=== PATIENT | female | born 1950 | race Caucasian/White ===

== ENCOUNTER 2020-11-13 12:56 | Outpatient (CLI) | payer MEDICARE, OTHER, SELFPAY ==
--- NOTE | 2020-11-13 | XR_ITS ---
WS: [id number] SCREENING DEXA SCAN Huan Xiong CLINICAL INFORMATION: POSTMENOPAULAS COMPARISON: None. FINDINGS: The L1-L4 bone mineral density measures 0.832 g/cm2. This corresponds to a T score score of -2.9 and Z score of -1.2. Left femoral neck bone mineral density measures 0.760 g/cm2. This corresponds to a T score of -2.0 an d Z score of -0.6. Right femoral neck bone mineral density measures 0.835 g/cm2. This corresponds to a T score -1.4of an d Z score of 0.0. Mean femoral neck bone mineral density measures 0.797 g/cm2. This corresponds to a T score of -1.7 an d Z score of -0.3. XR/XR DEXA axial skeleton* [id number] IMPRESSION: Osteoporosis lumbar spine. Osteopenia of the femoral necks. Patient's FRAX calculated 10 year probability for major osteoporotic fracture i s 17.2 % and osteoporotic hip fracture is 3.0%.
== END 2020-11-13 12:57 | disposition home or self-care (01) ==
PROVIDERS: PCP Internal Medicine; Visit Provider Internal Medicine
DX: Z78.0 Asymptomatic menopausal state (principal); M81.0 Age-related osteoporosis without current pathological fracture
CPT/HCPCS: 77080

== ENCOUNTER → 2020-12-08 10:37 | Outpatient (BNVA) | payer MEDICARE, OTHER, SELFPAY | PROVIDERS: PCP Internal Medicine; Referring Provider Internal Medicine; Visit Provider Podiatrist Foot & Ankle Surgery | DX: S92.351A Displaced fracture of fifth metatarsal bone, right foot, initial encounter for closed fracture (principal); X58.XXXA Exposure to other specified factors, initial encounter; Z46.89 Encounter for fitting and adjustment of other specified devices; S92.354D Nondisplaced fracture of fifth metatarsal bone, right foot, subsequent encounter for fracture with routine healing; X58.XXXD Exposure to other specified factors, subsequent encounter | CPT/HCPCS: 77077; 97760; L4361 ==

== ENCOUNTER 2020-12-08 12:13 | Outpatient (CLI) | payer MEDICARE, OTHER, SELFPAY | END 2020-12-08 12:14 | disposition home or self-care (01) | LOC: SPT 12:14 | PROVIDERS: PCP Internal Medicine; Visit Provider Podiatrist Foot & Ankle Surgery | DX: Z46.89 Encounter for fitting and adjustment of other specified devices (principal); S92.354D Nondisplaced fracture of fifth metatarsal bone, right foot, subsequent encounter for fracture with routine healing; X58.XXXD Exposure to other specified factors, subsequent encounter | CPT/HCPCS: 97760; L4361 ==

== ENCOUNTER → 2020-12-25 11:00 | Outpatient (BNVA) | payer MEDICARE, OTHER, SELFPAY | PROVIDERS: PCP Internal Medicine; Visit Provider Podiatrist Foot & Ankle Surgery | DX: S92.354D Nondisplaced fracture of fifth metatarsal bone, right foot, subsequent encounter for fracture with routine healing (principal); L60.0 Ingrowing nail; L60.3 Nail dystrophy; X58.XXXD Exposure to other specified factors, subsequent encounter; M79.671 Pain in right foot | CPT/HCPCS: 73630 ==

== ENCOUNTER → 2021-01-08 10:11 | Outpatient (BNVA) | payer MEDICARE, OTHER, SELFPAY | PROVIDERS: PCP Internal Medicine; Visit Provider Podiatrist Foot & Ankle Surgery | DX: S92.354A Nondisplaced fracture of fifth metatarsal bone, right foot, initial encounter for closed fracture (principal); M79.673 Pain in unspecified foot | CPT/HCPCS: 73630 ==

== ENCOUNTER → 2021-01-28 10:47 | Outpatient (BNVA) | payer MEDICARE, OTHER, SELFPAY | PROVIDERS: PCP Internal Medicine; Visit Provider Podiatrist Foot & Ankle Surgery | DX: S92.354A Nondisplaced fracture of fifth metatarsal bone, right foot, initial encounter for closed fracture (principal); L60.3 Nail dystrophy; L60.0 Ingrowing nail; X58.XXXA Exposure to other specified factors, initial encounter | CPT/HCPCS: 73630 ==

== ENCOUNTER → 2021-02-18 11:28 | Outpatient (BNVA) | payer MEDICARE, OTHER, SELFPAY | PROVIDERS: PCP Internal Medicine; Visit Provider Podiatrist Foot & Ankle Surgery | DX: S92.345A Nondisplaced fracture of fourth metatarsal bone, left foot, initial encounter for closed fracture (principal) | CPT/HCPCS: 73630 ==

== ENCOUNTER → 2021-03-25 11:45 | Outpatient (BNVA) | payer MEDICARE, OTHER, SELFPAY | PROVIDERS: PCP Internal Medicine; Visit Provider Podiatrist Foot & Ankle Surgery | DX: M79.673 Pain in unspecified foot (principal); S92.354A Nondisplaced fracture of fifth metatarsal bone, right foot, initial encounter for closed fracture; L60.3 Nail dystrophy; L60.0 Ingrowing nail; X58.XXXA Exposure to other specified factors, initial encounter | CPT/HCPCS: 73630 ==

== ENCOUNTER → 2021-06-10 10:53 | Day surgery (SDC) | payer MEDICARE, OTHER, SELFPAY ==
[2021-06-10 11:25] VITALS: BP 128/78; PULSE 70; RESP 18; TEMP 37; O2SAT 98; BMI 22.1
[2021-06-10] MEDS: denosumab 60 mg SDV SUBCUT (11:52)
== END ==
PROVIDERS: PCP Internal Medicine; Visit Provider Internal Medicine
DX: M81.0 Age-related osteoporosis without current pathological fracture (principal)
CPT/HCPCS: 96372; J0897

== ENCOUNTER → 2021-08-05 08:38 | Outpatient (BNVA) | payer MEDICARE, OTHER, SELFPAY | PROVIDERS: PCP Internal Medicine; Visit Provider Internal Medicine | DX: M81.0 Age-related osteoporosis without current pathological fracture (principal); Z87.81 Personal history of (healed) traumatic fracture; M79.7 Fibromyalgia | CPT/HCPCS: 99214 ==

== ENCOUNTER → 2021-12-07 09:00 | Day surgery (SDC) | payer MEDICARE, OTHER, SELFPAY ==
[2021-12-07 09:24] VITALS: BP 153/82; PULSE 71; RESP 18; TEMP 36.1; O2SAT 99
[2021-12-07 10:40] LABS: Calcium 9.4 mg/dL (8.5-10.5)
--- NOTE | 2021-12-07 10:40 | PC.NURSE ---
Pt to GI lab for Prolia injection. Calcium level today 9.5. Prolia injection given as ordered.
[2021-12-07] MEDS: denosumab 60 mg SDV SUBCUT (10:41)
== END ==
PROVIDERS: PCP Internal Medicine; Visit Provider Internal Medicine
DX: M81.0 Age-related osteoporosis without current pathological fracture (principal)
CPT/HCPCS: 36415; 82310; 96372; J0897

== ENCOUNTER → 2022-01-13 09:32 | Outpatient (BNVA) | payer MEDICARE, OTHER, SELFPAY | PROVIDERS: PCP Internal Medicine; Visit Provider Internal Medicine | DX: M81.0 Age-related osteoporosis without current pathological fracture (principal); M79.7 Fibromyalgia; Z87.81 Personal history of (healed) traumatic fracture | CPT/HCPCS: 99214 ==

== ENCOUNTER → 2022-06-09 08:44 | Day surgery (SDC) | payer MEDICARE, OTHER, SELFPAY ==
[2022-06-09 09:06] VITALS: BP 157/84; PULSE 78; RESP 18; TEMP 36.4; O2SAT 98
[2022-06-09 09:35] LABS: Calcium 9.4 mg/dL (8.5-10.5)
[2022-06-09] MEDS: denosumab 60 mg SDV SUBCUT (09:40)
== END ==
PROVIDERS: PCP Internal Medicine; Visit Provider Internal Medicine
DX: M81.0 Age-related osteoporosis without current pathological fracture (principal)
CPT/HCPCS: 82310; 96372; J0897

== ENCOUNTER → 2022-06-14 08:27 | Outpatient (BNVA) | payer MEDICARE, OTHER, SELFPAY | PROVIDERS: PCP Internal Medicine; Referring Provider Internal Medicine; Visit Provider Podiatrist Foot & Ankle Surgery | DX: M77.42 Metatarsalgia, left foot (principal); M77.41 Metatarsalgia, right foot; M24.572 Contracture, left ankle; M24.571 Contracture, right ankle; L90.9 Atrophic disorder of skin, unspecified; M81.0 Age-related osteoporosis without current pathological fracture | CPT/HCPCS: 73630; 99204 ==

== ENCOUNTER → 2022-07-15 13:31 | Outpatient (BNVA) | payer MEDICARE, OTHER, SELFPAY | PROVIDERS: PCP Internal Medicine; Visit Provider Podiatrist Foot & Ankle Surgery | DX: M77.42 Metatarsalgia, left foot (principal); M77.41 Metatarsalgia, right foot; M24.572 Contracture, left ankle; M24.571 Contracture, right ankle; L90.9 Atrophic disorder of skin, unspecified | CPT/HCPCS: 99213 ==

== ENCOUNTER → 2022-10-15 09:00 | Outpatient (BNVA) | payer MEDICARE, OTHER, SELFPAY | PROVIDERS: PCP Internal Medicine; Visit Provider Podiatrist Foot & Ankle Surgery | DX: M77.42 Metatarsalgia, left foot (principal); M77.41 Metatarsalgia, right foot; M24.572 Contracture, left ankle; M24.571 Contracture, right ankle; L90.9 Atrophic disorder of skin, unspecified; M81.0 Age-related osteoporosis without current pathological fracture | CPT/HCPCS: 99213 ==

== ENCOUNTER → 2022-11-24 09:55 | Day surgery (SDC) | payer MEDICARE, OTHER, SELFPAY ==
[2022-11-24 10:26] VITALS: BP 137/88; PULSE 84; RESP 18; TEMP 36.1; O2SAT 99
[2022-11-24 10:51] LABS: Calcium 8.7 mg/dL (8.5-10.5)
[2022-11-24] MEDS: denosumab 60 mg SDV SUBCUT (11:10)
== END ==
PROVIDERS: PCP Internal Medicine; Visit Provider Internal Medicine
DX: M81.0 Age-related osteoporosis without current pathological fracture (principal)
CPT/HCPCS: 36415; 82310; 96372; J0897

== ENCOUNTER → 2023-01-12 08:35 | Outpatient (BNVA) | payer MEDICARE, OTHER, SELFPAY | PROVIDERS: PCP Internal Medicine; Visit Provider Internal Medicine | DX: M79.7 Fibromyalgia (principal); M81.0 Age-related osteoporosis without current pathological fracture | CPT/HCPCS: 36415; 82306 ==

== ENCOUNTER → 2023-01-12 08:35 | Outpatient (BNVA) | payer MEDICARE, OTHER, SELFPAY | PROVIDERS: PCP Internal Medicine; Visit Provider Internal Medicine | DX: M79.7 Fibromyalgia (principal); M81.0 Age-related osteoporosis without current pathological fracture; Z87.81 Personal history of (healed) traumatic fracture; M54.9 Dorsalgia, unspecified | CPT/HCPCS: 99214 ==

== ENCOUNTER 2023-01-31 14:46 | Outpatient (CLI) | payer MEDICARE, OTHER, SELFPAY ==
--- NOTE | 2023-01-31 15:00 | XR_ITS ---
WS: [id number] DEXA (DUAL ENERGY X-RAY ABSORPTIOMETRY) Bone mineral density was performed using a [employer] machine. HISTORY: osteoporosis COMPARISON: 11/13/2020 Lumbar spine BMD (L1-L4): 0.954 g/cm2 T score: -1.9 Z score: -0.2 Total hip BMD: Left: 0.799 g/cm2. T score: -1.7 Z score: -0.2 Right: 0.854 g/cm2. T score: -1.2 Z score: 0.2 10 year probability of a major osteoporotic fracture is 24.1%. Compared to the prior study from 11/13/2020. Lumbar spine bone mineral density has increased by 14.7%. Bilateral hips bone mineral density has increased by 3.6%. XR/XR DEXA axial skeleton* [id number] IMPRESSION: OSTEOPENIA based upon the WHO classification for females. Significant increase in bone mineral density within the lumbar spine and hips s martinez the prior study.
== END 2023-01-31 14:47 | disposition home or self-care (01) ==
PROVIDERS: PCP Internal Medicine; Visit Provider Internal Medicine
DX: M81.0 Age-related osteoporosis without current pathological fracture (principal); M85.80 Other specified disorders of bone density and structure, unspecified site
CPT/HCPCS: 36415; 77080; 82306

== ENCOUNTER 2023-02-15 12:48 | Outpatient (CLI) | payer MEDICARE, OTHER, SELFPAY ==
--- NOTE | 2023-02-15 12:55 | US_ITS ---
WS: [id number] ULTRASOUND ABDOMEN CLINICAL INFORMATION: ABD PAIN, ACUTE COMPARISON: None. FINDINGS: History of esophageal fundoplication Liver Size: Upper limits of normal Craniocaudal length: 14.8 cm. Echogenicity: Normal. Surface nodularity: None. Mass (size and location): None. Bile ducts Intrahepatic ducts: Normal. Common bile duct diameter: 0.5 cm. Gallbladder Normal. Gallstones: None. Gallbladder sludge: None. Gallbladder wall thickening: None. Pericholecystic fluid: None. Sonographic Kim sign: Absent. Pancreas Normal as visualized. Right kidney: Normal. Hydronephrosis: None. Size: 9.8 cm x 4.3 cm x 3.9 cm Abdominal aorta and IVC Visualized portions are normal. Ascites: None. US/US abdomen complete* [id number] IMPRESSION: 1. Normal liver and gallbladder. Liver size upper limits of normal. 2. Normal common bile duct. 3. No hydronephrosis in RIGHT kidney. 4. Pancreas not well visualized but appears normal where seen 5. Reported history of esophageal fundoplication.
== END 2023-02-15 12:49 | disposition home or self-care (01) ==
PROVIDERS: PCP Internal Medicine; Visit Provider Nurse Practitioner Family
DX: R10.9 Unspecified abdominal pain (principal); Z98.890 Other specified postprocedural states
CPT/HCPCS: 76700

== ENCOUNTER 2023-03-17 11:26 | Emergency (ER) | payer MEDICARE, OTHER, SELFPAY ==
[2023-03-17] VITALS (8 sets, daily range): BP systolic 126–169; BP diastolic 64–91; PULSE 69–116; RESP 12–25; TEMP 36.7; O2SAT 96–99; BMI 21.1
[2023-03-17 12:38] LABS: Basophils % 0.5 %; Eosinophils % 0.7 %; Hematocrit 46.3 % (37.0-47.0); Hemoglobin 14.9 g/dL (11.5-15.3); Lymphocytes # 2.5 10^3/uL (0.8-4.8); Lymphocytes % 42.1 %; Mean Corpuscular HGB Conc 32.2 g/dL (30.0-36.0); Mean Corpuscular Hemoglobin 30.7 pg (28.0-34.0); Mean Corpuscular Volume 95.3 fl (81-99); Monocytes # 0.5 10^3/uL (0.2-0.9); Monocytes % 8.2 %; Neutrophils # 2.89 10^3/uL (1.8-7.7); Neutrophils % 48.3 %; Nucleated Red Blood Cells % 0 %; Platelet Count 361 10^3/cmm (130-400); Red Blood Count 4.86 10^6/uL (4.1-5.3); Red Cell Distribution Width 12.8 % (12.1-15.1)
[2023-03-17 12:57] LABS: Lactic Sepsis W/Reflex 0.9 mmol/L (0.5-2.2)
[2023-03-17 12:58] LABS: Alanine Aminotransferase 24 U/L (0-33); Albumin Level 4.4 g/dL (3.5-5.2); Alkaline Phosphatase 50 U/L (35-105); Anion Gap 14.4 (5-19); Aspartate Amino Transferase 19 U/L (0-32); Blood Urea Nitrogen 10 mg/dL (8-23); Calcium 8.7 mg/dL (8.5-10.5); Carbon Dioxide 25 mmol/L (22-29); Chloride 106 mmol/L (98-107); Globulin 2.1 g/dL (1.3-4.6); Glomerular Filtration Rate 98.8 mL/min (90-130); Glucose 95 mg/dL (65-115); Lipase 27 U/L (13-60); Osmolality Calculated 291 mOsm/kg (285-295); Potassium 4.4 mmol/L (3.5-5.1); Sodium 141 mmol/L (136-145); Total Bilirubin 0.7 mg/dL (0.15-1.2); Total Protein 6.5 g/dL (6.6-8.7)
--- NOTE | 2023-03-17 15:32 | CTR_ITS ---
PROCEDURE INFORMATION: Exam: CT Abdomen And Pelvis With Contrast Exam date and time: 03/17/2023 5:09 PM Age: 72 years old Clinical indication: Abdominal pain; Generalized; Prior surgery; Surgery date: 6+ months; Surgery type: Tubal TECHNIQUE: Imaging protocol: Computed tomography of the abdomen and pelvis with contrast. Radiation optimization: All CT scans at this facility use at least one of these dose optimization techniques: automated exposure control; mA and/or kV adjustment per patient size (includes targeted exams where dose is matched to clinical indication); or iterative reconstruction. Contrast material: OMNI 350; Contrast volume: 100 ml; Contrast route: INTRAVENOUS (IV); Other contrast: Oral, OMNI 350 15ML TO 20oz WATER, ; REPORTING DATA: Count of CT and Cardiac NM exams in prior 12 months: This patient has received 0 known CTs and 0 known cardiac nuclear medicine studies in the 12 months prior to the current study. COMPARISON: US abdomen complete* [id number] 02/15/2023 1:11 PM RADIATION DOSE METRICS: Total DLP (mGy-cm): 390.93 FINDINGS: Liver: Normal. No mass. Gallbladder and bile ducts: Normal. No calcified stones. No ductal dilation. Pancreas: Normal. No ductal dilation. Spleen: Calcified splenic granulomas. Adrenal glands: Normal. No mass. Kidneys and ureters: Normal. No hydronephrosis. Stomach and bowel: Probable previous gastroplasty in the region of the gastric cardia and fundus versus gastritis or even neoplasm. Correlation with endoscopy may be helpful if there is no history of prior surgery and positive pain in this region.. Moderate to severe retained feces. Appendix: No evidence of appendicitis. Intraperitoneal space: Unremarkable. No free air. No significant fluid collection. Vasculature: Calcification of the abdominal aorta and/or iliac arteries consistent with atherosclerotic vessel disease. Calcification of the abdominal aorta and/or iliac arteries consistent with atherosclerotic vessel disease. Lymph nodes: Unremarkable. No enlarged lymph nodes. Urinary bladder: Unremarkable as visualized. Reproductive: Multiple large calcified uterine fibroids. Bones/joints: Grade 1 anterior non-spondylitic spondylolisthesis of L4 on L5 with central spinal stenosis and prominent facet degenerative changes. Mild levoscoliosis. Soft tissues: Unremarkable. CT/CT abdomen pelvis w con* [id number] IMPRESSION: 1. Probable previous gastroplasty in the region of the gastric cardia and fundus versus gastritis or even neoplasm. Correlation with endoscopy may be helpful if there is no history of prior surgery and positive pain in this region.. 2. Multiple large calcified uterine fibroids. 3. Moderate to severe retained feces.
--- NOTE | 2023-03-17 16:24 | W.ED.ABDPA2 ---
HPI - Abdominal Pain General: Chief Complaint: Abdominal Pain Stated Complaint: black stool Time Seen by Provider: 03/17/23 13:48 History of Present Illness: This patient is a 72 year old presenting with abdominal pain, dry heaves, early satiety and weight loss for the past two months. She estimates a 17 pound weight loss. She has been seeing her PCP, Dr. Wong, and has had an US of her gallbladder (normal) and a CT at [facility]. The CT showed (the impression was read to me by the nurse at Dr. Wong's office) thickening of the colonic wall - underdistention vs colitis, hepatic steatosis and myomatous uterus. s/p appy. That was done on 02/19 during an ED visit. The patient was diagnosed with h. pylori and finished the treatment just under a week ago. She has been having dark stools - but no diarrhea. She has had nausea and dry heaves, but no vomiting. She has had a heike fundoplication. She says that when she tries to eat, she can only take a bite or two and then feels like she is very full in the epigastrium. She has not had a HIDA scan. She has been referred for an endoscopy but it hasn't been scheduled yet. [facility] ED PFSH: Medical History Age related osteoporosis Arthritis Fibromyalgia Family History Other Fractures Social History Smoking and tobacco status: never smoked Alcohol intake: never Substance/Drug Use: never Current occupational status: retired Physical Exam Const: COMMON NORMALS: no acute distress, patient oriented x3, no limitations and alert GENERAL APPEARANCE: cooperative and comfortable HENMT: HEAD & SCALP: normal to inspection FACE & SINUS: normal facial exam Eye: GENERAL EYE: appearance normal, both eyes and all related structures Neck/C-Spine: COMMON NORMALS: supple, no meningeal signs and no JVD Chest: COMMONS NORMALS: normal inspection of the chest Resp: COMMON NORMALS: normal respiratory effort, No use of accessory muscles and clear to auscultation bilaterally AUSCULTATION: clear to auscultation bilaterally Cardio: COMMON NORMALS: no JVD, regular rate, regular rhythm and No murmurs present (Cardio) RATE: regular rate RHYTHM: regular rhythm GI: COMMON NORMALS: No hepatosplenomegaly present INSPECTION: Yes normal to inspection AUSCULTATION: Yes normoactive bowel sounds PALPATION: Yes Tenderness to palpation present (GI) Details: LUQ, RUQ and other (epigastric), Yes Guarding due to palpation present (GI) and Yes No hepatosplenomegaly present Back/Pelvis: COMMON NORMALS: thoracic and lumbar spine normal to inspection Extremity: COMMON NORMALS: normal to inspection Neuro: COMMON NORMALS: patient oriented x3, moves all extremities, no focal motor deficits and no sensory deficits noted SENSORIUM/ORIENTATION: Yes alert MENINGEAL SIGNS: Yes no meningeal signs Psych: COMMON NORMALS: mental status grossly normal, cooperative and normal affect Skin: COMMON NORMALS: no rashes or lesions noted and turgor normal GENERAL SKIN EXAM: no rashes or lesions noted and turgor normal Course Vital Signs: Vital signs: Vital Signs Temperature 98.0 F 03/17/23 11:42 Pulse Rate 73 03/17/23 19:24 Respiratory Rate 12 03/17/23 19:24 Blood Pressure 163/91 03/17/23 19:24 Pulse Oximetry 96 03/17/23 19:24 Oxygen Delivery Me thod Room Air 03/17/23 19:24 MDM - Abdominal Pain Medical Decision Making Very uncomfortable, history of feeling like food gets stuck and early satiety in the epigastric area. She has had a heike fundoplication. Concern for esophageal stricture, GERD, esophageal mass - also concern for pancreatitis, biliary dyskinesia, SMA syndrome. Black stool may be related to Bismuth sulfate use. Hgb normal and more constiptaion than loose stools. Will repeat CT to further evaluate her pain, and re-evaluate the colon as there was some abnormality on her prior CT. Concerning weight loss. CT with thickening of the gastric antrum - possible post surgical but also question of neoplasm. Discussed with patient - initially we planned for her to go home and stick to a liquid diet while waiting for the scope, but she says that she can't even eat soups and has trouble tolerating fluids at all. She is worried about dehydration. We discussed admission for IV hydration and scope tomorrow - however I spoke with Dr. Blackwood (general surgery) and he thinks that the patient needs to have a GI doctor scope her. I spoke with the patient again regarding outpatient management vs transfer to [facility] She prefers to be transferred [facility] and prefers to go to [facility]. I spoke with the transfer center and Dr. Dos Santos - hospitalist - who accepted the patient. Lab Data 03/17/23 12:19 03/17/23 12:19 Labs/Radiology: Radiology Impressions Abdomen/Pelvis CT 03/17/23 15:32 IMPRESSION: 1. Probable previous gastroplasty in the region of the gastric cardia and fundus versus gastritis or even neoplasm. Correlation with endoscopy may be helpful if there is no history of prior surgery and positive pain in this region.. 2. Multiple large calcified uterine fibroids. 3. Moderate to severe retained feces. Laboratory Results WBC 6.0 10^3/uL (4.0-10.0) 03/17/23 12:19 RBC 4.86 10^6/uL (4.1-5.3) 03/17/23 12:19 Hgb 14.9 g/dL (11.5-15.3) 03/17/23 12:19 Hct 46.3 % (37.0-47.0) 03/17/23 12:19 MCV 95.3 fl (81-99) 03/17/23 12:19 MCH 30.7 pg (28.0-34.0) 03/17/23 12:19 MCHC 32.2 g/dL (30.0-36.0) 03/17/23 12:19 RDW 12.8 % (12.1-15.1) 03/17/23 12:19 Plt Count 361 10^3/cmm (130-400) 03/17/23 12:19 MPV 9.0 fL (7.4-10.4) 03/17/23 12:19 Neut % (Auto) 48.3 % 03/17/23 12:19 Lymph % (Auto) 42.1 % 03/17/23 12:19 [place] % (Auto) 8.2 % 03/17/23 12:19 Eos % (Auto) 0.7 % 03/17/23 12:19 Baso % (Auto) 0.5 % 03/17/23 12:19 Neut # (Auto) 2.89 10^3/uL (1.8-7.7) 03/17/23 12:19 Lymph # (Auto) 2.5 10^3/uL (0.8-4.8) 03/17/23 12:19 [place] # (Auto) 0.5 10^3/uL (0.2-0.9) 03/17/23 12:19 Eos # (Auto) 0.0 10^3/uL (0.0-0.8) 03/17/23 12:19 Baso # (Auto) 0.0 10^3/uL (0.0-0.1) 03/17/23 12:19 Nucleated RBC % (auto) 0 % 03/17/23 12:19 Nucleated RBCs # 0.0 /100WBC 03/17/23 12:19 Sodium 141 mmol/L (136-145) 03/17/23 12:19 Potassium 4.4 mmol/L (3.5-5.1) 03/17/23 12:19 Chloride 106 mmol/L (98-107) 03/17/23 12:19 Carbon Dioxide 25 mmol/L (22-29) 03/17/23 12:19 Anion Gap 14.4 (5-19) 03/17/23 12:19 BUN 10 mg/dL (8-23) 03/17/23 12:19 Creatinine 0.6 mg/dL (0.5-0.9) 03/17/23 12:19 GFR Calculation 98.8 mL/min (90-130) 03/17/23 12:19 Glucose 95 mg/dL (65-115) 03/17/23 12:19 Calculated Osmolality 291 mOsm/kg (285-295) 03/17/23 12:19 Lactic Acid 0.9 mmol/L (0.5-2.2) 03/17/23 12:19 Calcium 8.7 mg/dL (8.5-10.5) 03/17/23 12:19 Total Bilirubin 0.7 mg/dL (0.15-1.2) 03/17/23 12:19 AST 19 U/L (0-32) 03/17/23 12:19 ALT 24 U/L (0-33) 03/17/23 12:19 Alkaline Phosphatase 50 U/L (35-105) 03/17/23 12:19 Total Protein 6.5 g/dL (6.6-8.7) L 03/17/23 12:19 Albumin 4.4 g/dL (3.5-5.2) 03/17/23 12:19 Globulin 2.1 g/dL (1.3-4.6) 03/17/23 12:19 Lipase 27 U/L (13-60) 03/17/23 12:19 Discharge Plan Discharge Patient Disposition: Xfer Short-Term Hosp Clinical Impression: Abdominal pain, History of Kelby fundoplication, Abnormal weight loss, Nausea, Early satiety Condition: Stable Prescriptions: No Action diclofenac potassium 50 mg tablet 50 mg PO DAILY citalopram 40 mg tablet 20 mg PO DAILY amitriptyline 25 mg tablet 25 mg PO DAILY multivitamin Tablet 1 tab PO DAILY gabapentin 300 mg capsule 300 mg PO TID Digestive Advantage Advanced 10 billion cell capsule 1 cell PO DAILY betamethasone dipropionate 0.05 % cream 1 applic topical DAILY PRN (Reason: Pain) clobetasol 0.05 % ointment 1 applic topical BID 14 Days Qty: 60 0RF Rx Instructions: to affected areas on neck no more than 2 wks/mo prn flares pregabalin [Lyrica] 75 mg capsule 75 mg PO DAILY Prolia 60 mg/mL syringe 60 mg SUBCUT .every 6 months Qty: 1 3RF Rx Instructions: One mL subcut every 6 months. Referrals: Maria Del Carmen Wong MD [Primary Care Provider] - Patient Instructions: Abdominal Pain (ED) Coding Level of Care Code ED Supervisory Forester for Flakito Reddy
[2023-03-17] MEDS: iohexol 350 mg/mL 500 mL Btl (per mL) IV (17:04)
[2023-03-17] MEDS: iohexol 350 mg/mL 500 mL Btl (per mL) PO (17:04)
[2023-03-17] MEDS: fentaNYL 50 mcg/mL INJ 2mL IVP ×2 (17:06→22:16)
[2023-03-17] MEDS: ondansetron 2 mg/ML SDV 2 mL 4 MG IVP (17:06)
[2023-03-17] MEDS: famotidine 20 mg/2 mL INJ 40 MG IVP (17:06)
[2023-03-17] MEDS: metoclopramide 5 mg/mL SDV 2 mL 10 MG IVP (21:40)
[2023-03-18] VITALS (14 sets, daily range): BP systolic 112–158; BP diastolic 62–94; PULSE 64–98; RESP 14–19; O2SAT 94–98
[2023-03-18] MEDS: fentaNYL 50 mcg/mL INJ 2mL IVP ×2 (07:10→13:47)
--- NOTE | 2023-03-18 08:27 | DCPLANNER ---
I spoke with [facility] in [place]. Was told still no bed at this time, but it will be sometime today.
--- NOTE | 2023-03-18 11:09 | PC.NURSE ---
RECIEVED NICKORT ON PT FROM [facility]
[2023-03-18] MEDS: metoclopramide 5 mg/mL SDV 2 mL 10 MG IVP (13:48)
== END 2023-03-18 13:49 | disposition short-term general hospital (02) ==
PROVIDERS: Emergency Medicine; Emergency Provider Emergency Medicine; PCP Internal Medicine
DX: R10.9 Unspecified abdominal pain (principal); R63.4 Abnormal weight loss; Z68.21 Body mass index [BMI] 21.0-21.9, adult; R11.0 Nausea; R68.81 Early satiety; Z98.890 Other specified postprocedural states
CPT/HCPCS: 36415; 74177; 80053; 83605; 83690; 85025; 96374; 96375; 96376; 99285; J2405; J2765; J3010; J3490; Q9967

== ENCOUNTER → 2023-04-05 08:46 | Outpatient (BNVA) | payer MEDICARE, OTHER, SELFPAY | PROVIDERS: PCP Internal Medicine; Visit Provider Surgery | DX: K29.70 Gastritis, unspecified, without bleeding (principal); B96.81 Helicobacter pylori [H. pylori] as the cause of diseases classified elsewhere; Z12.11 Encounter for screening for malignant neoplasm of colon; Z80.0 Family history of malignant neoplasm of digestive organs; K21.9 Gastro-esophageal reflux disease without esophagitis | CPT/HCPCS: 99203 ==

== ENCOUNTER 2023-04-22 07:25 | Day surgery (SDC) | payer MEDICARE, OTHER, SELFPAY ==
[2023-04-20 09:57] VITALS: BMI 21.4
[2023-04-22 08:12] VITALS: BP 139/56; PULSE 74; RESP 16; TEMP 36.1; O2SAT 96
[2023-04-22] MEDS: sodium chloride 0.9% 1,000 ML 30 ML IV (08:18)
--- NOTE | 2023-04-22 08:40 | ANE.PACU2 ---
Inpatient post-anesthesia follow up: Airway intact: Yes Vital signs: Temperature 97.0 F Pulse Rate 64 Respiratory Rate 16 Blood Pressure 130/74 Pulse Oximetry 100 Oxygen Delivery Me thod Room Air Oxygen Flow Rate Fraction of Inspir ed Oxygen Hydration adequate: Yes Nausea and vomiting: No Pain level: 1 Mental status: Baseline
--- NOTE | 2023-04-22 08:49 | ANES.PREANE2 ---
Pre-Anesthetic Assessment Height/Weight: Height 1.68 m Weight 60.328 kg Temp Pulse Resp BP Pulse Ox O2 Del Method 97 F L 74 16 139/56 96 Room Air 04/22/23 08:12 04/22/23 08:12 04/22/23 08:12 04/22/23 08:12 04/22/23 08:12 04/22/23 08:12 Preop Diagnosis: GERD, screening Operation Date: 04/22/23 08:45 Proposed Procedures p : [id number] - EGD, Colonoscopy K12.9,Z12.11,Z80.0(Not Applicable) - Esteban Alvarado DO s Colonoscopy(Not Applicable) - Esteban Alvarado DO Familial anesthetic complications: None Was Beta Héctor taken within 24 hours: N/A Was Clonidine taken within 24 hours: N/A Last intake: Intake Last Liquid Date 04/21/23 Last Liquid Time 23:00 Last Solid Date 04/20/23 Last Solid Time 17:30 Social No alcohol and No tobacco Exam alert, oriented x 3 and clear to auscultation bilaterally Airway Submandibular: within normal limits Cervical ROM: within normal limits Mallampati: Class II Dentition: false History/ROS No significant history except as noted Pulmonary None reported CV/HEM None reported None reported Hepatic None reported GI Gastroesophageal Reflux Disease Metabolic None reported Musc/skel Fibromyalgia Neuropsych None reported Anesthetic Plan ASA status: 2 Anesthesia: Anesthesia Evaluation and MAC Risk of > 500 ml blood loss (7ml/kg in children): No Medications/Allergies Home Medications Medication Instructions Recorded Confirmed Last Taken Type amitriptyline 25 mg tablet 25 mg PO DAILY 12/08/20 04/22/23 04/20/23 History citalopram 40 mg tablet 20 mg PO DAILY 12/08/20 04/22/23 04/20/23 History diclofenac potassium 50 mg tablet 50 mg PO DAILY 12/08/20 04/22/23 04/20/23 History multivitamin 1 tab PO DAILY 12/08/20 04/22/23 04/20/23 History gabapentin 300 mg capsule 300 mg PO TID 01/08/21 04/22/23 04/20/23 History betamethasone dipropionate 0.05 % 1 applic topical DAILY PRN Pain 12/14/21 04/20/23 11/24/22 History topical cream clobetasol 0.05 % topical ointment 1 applic topical BID 2 weeks #60 12/14/21 04/20/23 11/24/22 Rx grams pregabalin 75 mg capsule (Lyrica) 75 mg PO DAILY 06/14/22 04/22/23 04/20/23 History denosumab 60 mg/mL subcutaneous 60 mg SUBCUT .every 6 months #1 mL 10/19/22 04/20/23 12/20/22 Rx syringe (Prolia) calcium carbonate 500 mg calcium 1,500 mg PO DAILY 04/20/23 04/22/23 04/20/23 History (1,250 mg) tablet omeprazole 40 mg capsule,delayed 40 mg PO BID 04/20/23 04/22/23 04/20/23 History release Allergies Allergy/AdvReac Type Severity Reaction Status Date / Time cefuroxime [From Ceftin] Allergy difficulty Verified 04/05/23 10:08 breathing guaifenesin [From Entex LA] Allergy difficulty Verified 04/05/23 10:08 breathing phenylephrine [From Entex LA] Allergy difficulty Verified 04/05/23 10:08 breathing phenylpropanolamine Allergy difficulty Verified 04/05/23 10:08 [From Entex LA] breathing Current Medications Generic Name Dose Route Start Last Admin Trade Name Freq PRN Reason Stop Dose Admin Sodium Chloride 1,000 mls @ 30 mls/hr 04/22/23 07:30 04/22/23 08:18 Sodium Chloride 0.9% IV 04/23/23 07:29 30 mls/hr .Q24H JOB Administration PFSH Anesthesia Medical History (Updated 04/05/23 @ 11:18 by Esteban Alvarado DO) Age related osteoporosis Arthritis Fibromyalgia Surgical History (Updated 04/05/23 @ 11:18 by Esteban Alvarado DO) History of esophagogastroduodenoscopy (EGD) 2022 History of gastric surgery Gastric Pull up 1998 Hx of colonoscopy 6 yrs ago Hx of rotator cuff surgery left shoulder Hx of tubal ligation hx of cyst removal Family History Grandfather Cancer stomach cancer Mother Enlarged heart Other Fractures Social History Smoking and tobacco status: never smoked Alcohol intake: never Substance/Drug Use: never Current occupational status: retired Data Anesthesia Cardiac Studies: No Data to Display
--- NOTE | 2023-04-22 09:12 | W.PM.OPSUD ---
Surgery/Procedure H&P Update DATE OF PROCEDURE: April 22, 2023 DATE H&P PERFORMED: 04/05/23 H&P UPDATE INFORMATION: I have reviewed H&P completed within last 30 days, I have examined patient prior to procedure and No changes to prior documentation PREOP DIAGNOSIS: GERD, screening PLANNED PROCEDURE: Operation Date: 04/22/23 08:45 Proposed Procedures p : [id number] - EGD, Colonoscopy K12.9,Z12.11,Z80.0(Not Applicable) - Esteban Alvarado DO s Colonoscopy(Not Applicable) - Esteban Alvarado DO
[2023-04-22 09:49] VITALS: BP 133/75; PULSE 65; RESP 16; TEMP 36.1; O2SAT 99
[2023-04-22 10:03] VITALS: BP 130/74; PULSE 64; RESP 16; O2SAT 100
== END 2023-04-22 10:22 | disposition home or self-care (01) ==
PROVIDERS: PCP Internal Medicine; Visit Provider Surgery
PROC: 0DJ08ZZ Inspection of Upper Intestinal Tract, Via Natural or Artificial Opening Endoscopic (ICD-10-PCS; CPT 43235; principal; 2023-04-22 08:45)
PROC: 0DJD8ZZ Inspection of Lower Intestinal Tract, Via Natural or Artificial Opening Endoscopic (ICD-10-PCS; CPT 45378; 2023-04-22 08:45)
DX: Z12.11 Encounter for screening for malignant neoplasm of colon (principal); K21.9 Gastro-esophageal reflux disease without esophagitis; Z80.0 Family history of malignant neoplasm of digestive organs; K29.70 Gastritis, unspecified, without bleeding
CPT/HCPCS: 43239; 88305; G0121; J2704; J7030

== ENCOUNTER → 2023-05-13 15:54 | Outpatient (BNVA) | payer MEDICARE, OTHER, SELFPAY | PROVIDERS: PCP Internal Medicine; Visit Provider Surgery | DX: Z09 Encounter for follow-up examination after completed treatment for conditions other than malignant neoplasm (principal) | CPT/HCPCS: 99212 ==

== ENCOUNTER 2023-05-31 09:16 | Oncology outpatient (recurring) (ONCR) | payer MEDICARE, OTHER, SELFPAY ==
[2023-05-31 10:04] VITALS: BP 134/82; PULSE 77; RESP 17; TEMP 37.2; O2SAT 96
[2023-05-31] MEDS: denosumab 60 mg SDV SUBCUT (10:07)
[2023-05-31 10:10] VITALS: BP 134/82; PULSE 77; RESP 17; TEMP 37.2; O2SAT 96
== END 2023-06-11 23:59 | disposition home or self-care (01) ==
PROVIDERS: PCP Internal Medicine; Visit Provider Internal Medicine
DX: M81.0 Age-related osteoporosis without current pathological fracture (principal)
CPT/HCPCS: 96372; J0897

== ENCOUNTER 2023-11-28 08:05 | Oncology outpatient (recurring) (ONCR) | payer MEDICARE, OTHER, SELFPAY ==
[2023-11-28] MEDS: denosumab 60 mg SDV SUBCUT (09:17)
== END 2023-12-11 23:59 | disposition home or self-care (01) ==
PROVIDERS: PCP Internal Medicine; Visit Provider Internal Medicine
DX: M81.0 Age-related osteoporosis without current pathological fracture (principal)
CPT/HCPCS: 36415; 85025; 96372; J0897

== ENCOUNTER → 2024-01-13 09:53 | Outpatient (BNVA) | payer MEDICARE, OTHER, SELFPAY | PROVIDERS: PCP Internal Medicine; Visit Provider Internal Medicine | DX: M79.7 Fibromyalgia (principal); M81.0 Age-related osteoporosis without current pathological fracture; E16.2 Hypoglycemia, unspecified; M54.9 Dorsalgia, unspecified; Z87.81 Personal history of (healed) traumatic fracture | CPT/HCPCS: 36415; 80053; 82306; 99214 ==

== ENCOUNTER → 2024-02-01 10:52 | Outpatient (BNVA) | payer MEDICARE, OTHER, SELFPAY | PROVIDERS: PCP Internal Medicine; Visit Provider Internal Medicine | DX: M81.0 Age-related osteoporosis without current pathological fracture (principal); Z87.81 Personal history of (healed) traumatic fracture; M79.7 Fibromyalgia; M54.9 Dorsalgia, unspecified; E16.2 Hypoglycemia, unspecified | CPT/HCPCS: 99214 ==

== ENCOUNTER 2024-02-08 07:20 | Outpatient (CLI) | payer MEDICARE, OTHER, SELFPAY ==
[2024-02-13 02:40] LABS: Cortisol ,Free,LC/MS, S 0.75 mcg/dL
== END 2024-02-08 07:21 | disposition home or self-care (01) ==
LOC: LAB 07:22
PROVIDERS: PCP Internal Medicine; Visit Provider Internal Medicine
DX: E16.2 Hypoglycemia, unspecified (principal)
CPT/HCPCS: 36415; 82530

== ENCOUNTER 2024-03-30 08:00 | Oncology outpatient (recurring) (ONCR) | payer MEDICARE, OTHER, SELFPAY ==
[2024-03-30 08:24] VITALS: BP 144/85; PULSE 96; RESP 16; TEMP 36.3; O2SAT 97
[2024-03-30] MEDS: cosyntropin 0.25 mg SDV IVP (08:26)
[2024-03-30 09:03] LABS: Cosyntropin Baseline 8.53 mcg/dL
[2024-03-30 10:10] VITALS: BP 153/80; PULSE 85; RESP 18; TEMP 36.4; O2SAT 95
[2024-03-30 10:34] LABS: Cosyntropin 1 Hour 23.98 mcg/dL
[2024-03-30 11:12] LABS: Cosyntropin 30 Minute 21.69 mcg/dL
== END 2024-04-11 23:59 | disposition home or self-care (01) ==
PROVIDERS: PCP Internal Medicine; Visit Provider Internal Medicine
DX: M81.0 Age-related osteoporosis without current pathological fracture (principal); Z79.899 Other long term (current) drug therapy
CPT/HCPCS: 82533; 96374; J0834

== ENCOUNTER → 2024-05-07 10:58 | Outpatient (BNVA) | payer MEDICARE, OTHER, SELFPAY | PROVIDERS: PCP Internal Medicine; Visit Provider Internal Medicine | DX: M79.7 Fibromyalgia (principal); M81.0 Age-related osteoporosis without current pathological fracture; E16.2 Hypoglycemia, unspecified; E55.9 Vitamin D deficiency, unspecified; M54.9 Dorsalgia, unspecified; Z87.81 Personal history of (healed) traumatic fracture | CPT/HCPCS: 36415; 80053; 82306; 99214 ==

== ENCOUNTER 2024-06-22 08:58 | Oncology outpatient (recurring) (ONCR) | payer MEDICARE, OTHER, SELFPAY ==
[2024-06-22] MEDS: denosumab 60 mg SDV SUBCUT (09:22)
== END 2024-07-12 23:59 | disposition home or self-care (01) ==
PROVIDERS: PCP Internal Medicine; Visit Provider Internal Medicine
DX: M81.0 Age-related osteoporosis without current pathological fracture (principal); Z79.899 Other long term (current) drug therapy; Z53.9 Procedure and treatment not carried out, unspecified reason
CPT/HCPCS: 96372; J0897

== ENCOUNTER 2024-11-07 10:05 | Outpatient (CLI) | payer MEDICARE, OTHER, SELFPAY ==
[2024-11-07 11:02] LABS: Alanine Aminotransferase 18 U/L (0-33); Albumin Level 4.6 g/dL (3.5-5.2); Alkaline Phosphatase 83 U/L (35-105); Anion Gap 13.4 (5-19); Aspartate Amino Transferase 19 U/L (0-32); Blood Urea Nitrogen 15 mg/dL (8-23); Calcium 9.7 mg/dL (8.5-10.5); Carbon Dioxide 27 mmol/L (22-29); Chloride 107 mmol/L (98-107); Globulin 2.2 g/dL (1.3-4.6); Glucose 85 mg/dL (65-115); Osmolality Calculated 296 mOsm/kg (285-295); Potassium 4.4 mmol/L (3.5-5.1); Sodium 143 mmol/L (136-145); Total Bilirubin 0.8 mg/dL (0.15-1.2); Total Protein 6.8 g/dL (6.6-8.7)
[2024-11-07 13:18] LABS: 25 Hydroxy Vitamin D 59 ng/mL (30-100)
== END 2024-11-07 10:06 | disposition home or self-care (01) ==
LOC: LAB 10:11
PROVIDERS: PCP Internal Medicine; Visit Provider Internal Medicine
DX: E16.2 Hypoglycemia, unspecified (principal); M81.0 Age-related osteoporosis without current pathological fracture; E55.9 Vitamin D deficiency, unspecified; M79.7 Fibromyalgia; Z87.81 Personal history of (healed) traumatic fracture; M54.9 Dorsalgia, unspecified
CPT/HCPCS: 36415; 80053; 82306; 99214

== ENCOUNTER 2025-01-07 13:56 | Oncology outpatient (recurring) (ONCR) | payer MEDICARE, OTHER, SELFPAY ==
[2025-01-07] MEDS: denosumab 60 mg SDV SUBCUT (15:23)
== END 2025-01-09 23:59 | disposition home or self-care (01) ==
PROVIDERS: PCP Internal Medicine; Visit Provider Internal Medicine
DX: M81.0 Age-related osteoporosis without current pathological fracture (principal); Z79.899 Other long term (current) drug therapy
CPT/HCPCS: 96372; J0897

== ENCOUNTER 2025-03-26 13:05 | Outpatient (CLI) | payer MEDICARE, OTHER, SELFPAY ==
--- NOTE | 2025-03-26 13:30 | XR_ITS ---
WS: [id number] SCREENING DEXA SCAN RPost CLINICAL INFORMATION: Osteoporosis with history of fractures COMPARISON: 2022 FINDINGS: The L1-L4 bone mineral density measures 1.006 g/cm2. This corresponds to a T score score of -1.5 and Z score of 0.2. Left femoral neck bone mineral density measures 0.801 g/cm2. This corresponds to a T score of -1.6 and Z score of -0.1. Right femoral neck bone mineral density measures 0.907 g/cm2. This corresponds to a T score -0.8of and Z score of 0.7. Mean femoral neck bone mineral density measures 0.854 g/cm2. This corresponds to a T score of -1.2 and Z score of 0.3. XR/XR DEXA axial skeleton* [id number] IMPRESSION: Osteopenia lumbar spine. Osteopenia femoral necks. Patient's FRAX calculated 10 year probability for major osteoporotic fracture i s 27.5% and osteoporotic hip fracture is 10.2%. Bone density lumbar spine increased 5.5% Bone density femoral necks increased 3.4%
== END 2025-03-26 13:06 | disposition home or self-care (01) ==
LOC: RAD 13:06
PROVIDERS: PCP Internal Medicine; Visit Provider Internal Medicine
DX: Z13.820 Encounter for screening for osteoporosis (principal); M81.0 Age-related osteoporosis without current pathological fracture; Z87.81 Personal history of (healed) traumatic fracture
CPT/HCPCS: 77080

== ENCOUNTER 2025-05-08 11:29 | Emergency (ER) | payer MEDICARE, OTHER, SELFPAY ==
[2025-05-08 11:32] VITALS: BP 135/93; PULSE 75; RESP 16; TEMP 36.6; O2SAT 99
--- OUTSIDE RECORDS SUMMARY | 2025-05-08 11:34 | XMS_ITS | Clinical Summary ---
Author Organization [facility] [address] [facility] Address [address] [place] [address] Phone Care Team Providers Care Promotional Marketing Analyst Name Role Phone Unavailable Primary Care Provider Unavailabl e Allergies Active Allergy Reactions Criticality Noted Date Comments Phenylephrine-Guaifenesin Shortness of Breath/Wheezing 06/09/2016 Medications OMEGA-3S/DHA/EPA /FISH OIL/D3 (VITAMIN-D + OMEGA-3 ORAL) Take by mouth. Active CALCIUM ORAL Take by mouth. Active citalopram (CeleXA) 40 mg tablet Take 40 mg by mouth daily. Active gabapentin (NEURONTIN) 300 mg capsule Take 300 mg by mouth 3 times daily. Active etodolac (LODINE) 400 mg tablet 08/10/2016 Active amitriptyline (ELAVIL) 25 mg tablet 10/16/2016 Active Active Problems Problem Noted Date Diagnosed Date Closed nondisplaced oblique fracture of shaft of left humerus 11/03/2016 Social History Tobacco Use Types Packs/Day Years Used Date Smoking Tobacco: Never Smokeless Tobacco: Never Alcohol Use Standard Drinks/Week Comments No 0 (1 standard drink = 0.6 oz pur e alcohol) Comments Unknown Sex and Gender Information Value Date Recorded Sex Assigned at Not on file Legal Sex Female 4:16 AM [employer] Gender Identity Not on file Sexual Orientation Not on file Last Filed Vital Signs Vital Sign Reading Time Taken Comments Blood Pressure 146/83 11/03/2016 9:56 AM [employer] Pulse 93 11/03/2016 9:56 AM [employer] Temperature - - Respiratory Rate - - Oxygen Saturation - - Inhaled Oxygen Concentration - - Weight 65.8 kg (145 lb) 11/03/2016 9:56 AM [employer] Height 170.2 cm (5' 7 ) 11/03/2016 9:56 AM [employer] Body Mass Index 22.71 11/03/2016 9:56 AM [employer] Plan of Treatment Health Maintenance Due Date Last Done Comments DTAP/TDAP/TD VACCINES (1 - Tdap) 1971 BREAST CANCER SCREENING 1992 COLORECTAL SCREENING 1997 Colorectal Cancer Screening 1997 FIT-DNA Q 3 years 1997 FIT/FOBT Q 1 year 1997 Flex Sig/CT Colonography Q 5 years 1997 PNEUMOCOCCAL VACCINE 50+ YEARS (1 of 1 - PCV) 06/20/20 02 ZOSTER VACCINE (1 of 2) 2002 OSTEOPOROSIS SCREENING 2017 INFLUENZA VACCINE (#1) 2025 RSV VACCINE (60+ or ) (1 - 1-dose 75+ series) 2027
--- OUTSIDE RECORDS SUMMARY | 2025-05-08 11:34 | XMS_ITS | Clinical Summary ---
Author Organization [facility] Address [address] [place]: Epic Prelude ADT [place] [address] Care Team Providers Care In Room Dining Server Name Role Phone Unavailable Primary Care Provider Unavailabl e Allergies Active Allergy Reactions Criticality Noted Date Comments Cefuroxime Axetil Unknown 03/18/2023 Phenylephrine-Guaifenesin Shortness of Breath/Wheezing High 06/09/2016 Sulfa (Sulfonamide Antibiotics) Unknown 03/18/2023 Medications amitriptyline (ELAVIL) 25 mg tablet 7 Active omega-3s/dha/ep a/fish oil/D3 (VITAMIN-D + OMEGA-3 ORAL) Take by mouth. 6 Active CALCIUM ORAL Take by mouth. 6 Active citalopram (CeleXA) 40 mg tablet Take 40 mg by mouth daily. 6 Active pregabalin 75 mg capsule Take 75 mg by mouth daily at bedtime. Active denosumab (PROLIA) 60 mg/mL Syringe Inject 60 mg by subcutaneous injection every 6 months. Active metoclopramide HCl (REGLAN) 10 mg tablet Take 1 Tablet by mouth 3 times daily. 4 Active famotidine (PEPCID) 20 mg tabletIndicatio ns:Gastroesopha geal reflux disease, unspecified whether esophagitis present,History of Kelby fundoplication, Epigastric pain Take 1 tablet by mouth once daily 90 Tablet 1 5 Active pantoprazole (PROTONIX) 20 mg Tablet, Delayed Release (E.C.)Indicatio ns:Gastroesopha geal reflux disease, unspecified whether esophagitis present,History of Kelby fundoplication, Gastric motility disorder,Bloati ng Take 1 Tablet (20 mg) by mouth 2 times daily before meals. 180 Tablet 3 5 Active Active Problems Problem Noted Date Diagnosed Date Depression 03/18/2023 Fibromyalgia 03/18/2023 GERD (gastroesophageal reflux disease) 3 Epigastric pain 03/18/2023 Unintentional weight loss 03/18/2023 Constipation, unspecified 03/18/2023 Nausea 03/18/2023 Esophageal dysphagia 03/18/2023 Closed nondisplaced oblique fracture of shaft of left humerus 11/03/2016 Encounters Date Type Department Care Team Description 04/04/2025 8:30 AM CDT Office Visit [facility] [place] [address] Teresa Jordan PA-C Gastroesophageal reflux disease, unspecified whether esophagitis present (Primary Dx); History of Kelby fundoplication; Gastric motility disorder; Bloating 03/27/2025 External Device Data [facility] ABSTRACTION Provider, Abstract 03/26/2025 External Device Data [facility] ABSTRACTION Provider, Abstract from Last 3 Months Social History Tobacco Use Types Packs/Day Years Used Date Smoking Tobacco: Never Smokeless Tobacco: Never Tobacco Cessation:Counseling Given: Not Answered Alcohol Use Standard Drinks/Week Comments No 0 (1 standard drink = 0.6 oz pur e alcohol) Feeling Safe Answer Date Recorded Are you in a relationship wi th someone who hurts you emotionally and/or physically? 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 Gender Identity Not on file Sexual Orientation Not on file Last Filed Vital Signs Vital Sign Reading Time Taken Comments Blood Pressure 126/76 04/04/2025 8:36 AM CDT Pulse 74 04/04/2025 8:36 AM CDT Temperature 36.1 C (97 F) 03/24/2023 7:53 AM CDT Respiratory Rate 16 03/24/2023 7:53 AM CDT Oxygen Saturation 95% 03/24/2023 7:53 AM CDT Inhaled Oxygen Concentration - - Weight 68.2 kg (150 lb 6.4 oz) 04/04/2025 8:36 A M CDT Height 167.6 cm (5' 6 ) 04/04/2025 8:36 AM CDT Body Mass Index 24.28 04/04/2025 8:36 AM CDT Plan of Treatment Upcoming Encounters Date Type Department Care Team (Late st Contact Info) Description 04/04/2026 8:30 AM CDT Office Visit [facility]- [place] [address] [place] [address] Teresa Jordan PA-C [address] [place] [address] Health Maintenance Due Date Last Done Comments DTAP/TDAP/TD VACCINES (1 - Tdap) 1971 BREAST CANCER SCREENING 1992 COLORECTAL SCREENING 1997 Colorectal Cancer Screening 1997 FIT-DNA Q 3 years 1997 FIT/FOBT Q 1 year 1997 Flex Sig/CT Colonography Q 5 years 1997 PNEUMOCOCCAL VACCINE 50+ YEARS (1 of 1 - PCV) 06/20/20 02 ZOSTER VACCINE (1 of 2) 2002 RSV VACCINE (60+ or ) (1 - Risk 60-74 years 1-dose series) 2012 OSTEOPOROSIS SCREENING 2017 INFLUENZA VACCINE (#1) 2025 Insurance MEDICARE PART A AND B [facility] RX [employer] Medicare Part D RX [employer] (INTERNAL) [facility] Advance Directives For more information, please contact: [phone] * Full Code (Latest Code Status on File) Date Activated Date Inactivated Comments 03/18/2023 4:29 PM 03/24/2023 3:36 PM
--- NOTE | 2025-05-08 12:17 | XR_ITS ---
WS: [id number] Exam: XR hip LT 2-3V wo/w pel* [id number] Date/Time of Exam: 05/08/2025 12:17 PM Reason For Exam: fall, left hip pain. with pelvis No acute fracture. Minimal DJD of the joint compartment. Normal soft tissues. Probable large calcified uterine fibroid in the central pelvis. XR/XR hip LT 2-3V wo/w pel* [id number] IMPRESSION: 1. No acute hip fracture. Mild DJD.
--- NOTE | 2025-05-08 13:11 | W.ED.FALL ---
HPI - Fall General: Chief Complaint: Extremity Injury, Lower Stated Complaint: fall a few weeks ago, L hip pain Time Seen by Provider: 05/08/25 13:00 Related Data Home Medications ?Medication ?Instructions ?Recorded ?Confirmed amitriptyline 25 mg tablet 25 mg PO DAILY 12/08/20 05/08/25 citalopram 40 mg tablet 20 mg PO DAILY 12/08/20 05/08/25 diclofenac potassium 50 mg tablet 50 mg PO DAILY 12/08/20 05/08/25 multivitamin 1 tab PO DAILY 12/08/20 05/08/25 gabapentin 300 mg capsule 300 mg PO TID 01/08/21 05/08/25 betamethasone dipropionate 0.05 % 1 applic topical DAILY PRN Pain 12/14/21 05/08/25 topical cream pregabalin 75 mg capsule (Lyrica) 75 mg PO DAILY 06/14/22 05/08/25 calcium carbonate 1,500 mg PO DAILY 04/20/23 05/08/25 Previous Rx's ?Medication ?Instructions ?Recorded clobetasol 0.05 % topical ointment 1 applic topical BID 2 weeks #60 12/14/21 grams denosumab 60 mg/mL subcutaneous 60 mg SUBCUT .every 6 months #1 mL 10/19/22 syringe (Prolia) pantoprazole 40 mg tablet,delayed 40 mg PO BID 6 weeks #84 tabs 04/22/23 release (Protonix) blood-glucose meter (Blood Glucose #1 ea 02/01/24 Monitoring kit) blood-glucose sensor (FreeStyle #2 ea 02/01/24 Morena 3 Sensor device) blood-glucose,fish receiver,cont #1 ea 02/01/24 (FreeStyle Morena 3 Beacon) Allergies Allergy/AdvReac Type Severity Reaction Status Date / Time cefuroxime (From Ceftin) Allergy difficulty Verified 11/06/24 17:04 breathing guaifenesin (From Entex [place]) Allergy difficulty Verified 11/06/24 17:04 breathing phenylephrine (From Entex [place]) Allergy difficulty Verified 11/06/24 17:04 breathing phenylpropanolamine (From Allergy difficulty Verified 11/06/24 17:04 Entex LA) breathing PFSH ED PFSH: Medical History Age related osteoporosis Fibromyalgia Arthritis Surgical History Hx of rotator cuff surgery left shoulder Hx of tubal ligation hx of cyst removal History of gastric surgery Gastric Pull up 1998 Hx of colonoscopy 6 yrs ago History of esophagogastroduodenoscopy (EGD) 2022 Family History Grandfather Cancer stomach cancer Mother Enlarged heart Other Fractures Social History Smoking and tobacco/nicotine status: never used tobacco/nicotine Alcohol intake: never Substance/Drug Use: never Current occupational status: retired Course Vital Signs: Vital signs: Vital Signs Temperature 97.9 F 05/08/25 11:32 Pulse Rate 75 05/08/25 11:32 Respiratory Rate 16 05/08/25 11:32 Blood Pressure 135/93 05/08/25 11:32 Pulse Oximetry 99 05/08/25 11:32 Oxygen Delivery Me thod Room Air 05/08/25 11:32 Discharge Plan Discharge Condition: Stable Prescriptions: No Action diclofenac potassium 50 mg tablet 50 mg PO DAILY citalopram 40 mg tablet 20 mg PO DAILY amitriptyline 25 mg tablet 25 mg PO DAILY multivitamin Tablet 1 tab PO DAILY gabapentin 300 mg capsule 300 mg PO TID betamethasone dipropionate 0.05 % cream 1 applic topical DAILY PRN (Reason: Pain) clobetasol 0.05 % ointment 1 applic topical BID 14 Days Qty: 60 0RF Rx Instructions: to affected areas on neck no more than 2 wks/mo prn flares pregabalin [Lyrica] 75 mg capsule 75 mg PO DAILY (DME) FreeStyle [facility] See [facility] Instructions .Route Qty: 1 0RF Rx Instructions: As directed (DME) FreeStyle Morena 3 Sensor Device See Rx Instructions .Route Qty: 2 3RF Rx Instructions: As directed (DME) blood-glucose meter [Blood Glucose Monitoring] Kit See Rx Instructions .Route Qty: 1 0RF Rx Instructions: As directed Prolia 60 mg/mL syringe 60 mg SUBCUT .every 6 months Qty: 1 3RF Rx Instructions: One mL subcut every 6 months. calcium carbonate 500 mg calcium (1,250 mg) Tablet 1,500 mg PO DAILY Protonix 40 mg tablet,delayed release (DR/EC) 40 mg PO BID 42 Days Qty: 84 1RF Referrals: Maria Del Carmen Wong MD [Primary Care Provider, Internal Medicine] Print Language: Hungarian Coding Level of Care Code ED Commercial Baking Teacher for Flakito Reddy
[2025-05-08 15:11] LABS: Alanine Aminotransferase 19 U/L (0-33); Albumin Level 4.4 g/dL (3.5-5.2); Alkaline Phosphatase 76 U/L (35-105); Anion Gap 9.9 (5-19); Aspartate Amino Transferase 20 U/L (0-32); Blood Urea Nitrogen 18 mg/dL (8-23); Calcium 9.7 mg/dL (8.5-10.5); Carbon Dioxide 30 mmol/L (22-29); Chloride 101 mmol/L (98-107); Creatinine Clr Calc Pharmacy 62.8314; Globulin 2.4 g/dL (1.3-4.6); Glucose 91 mg/dL (65-115); Osmolality Calculated 285 mOsm/kg (285-295); Potassium 3.9 mmol/L (3.5-5.1); Sodium 137 mmol/L (136-145); Total Protein 6.8 g/dL (6.6-8.7)
== END 2025-05-08 14:11 | disposition left against medical advice (07) ==
PROVIDERS: Internal Medicine; Emergency Provider Family Medicine; PCP Internal Medicine
DX: E55.9 Vitamin D deficiency, unspecified (principal); Z87.81 Personal history of (healed) traumatic fracture; W19.XXXA Unspecified fall, initial encounter
CPT/HCPCS: 36415; 73502; 80053; 82306; 99215

== ENCOUNTER → 2025-08-06 08:50 | Outpatient (BNVA) | payer MEDICARE, OTHER, SELFPAY | PROVIDERS: PCP Internal Medicine; Visit Provider Orthopaedic Surgery | DX: S42.002A Fracture of unspecified part of left clavicle, initial encounter for closed fracture (principal); X58.XXXA Exposure to other specified factors, initial encounter | CPT/HCPCS: 73000; 99203 ==

== ENCOUNTER → 2025-08-27 08:02 | Outpatient (BNVA) | payer MEDICARE, OTHER, SELFPAY | PROVIDERS: PCP Internal Medicine; Visit Provider Orthopaedic Surgery | DX: S42.002D Fracture of unspecified part of left clavicle, subsequent encounter for fracture with routine healing (principal); W19.XXXD Unspecified fall, subsequent encounter; M81.0 Age-related osteoporosis without current pathological fracture; Z87.81 Personal history of (healed) traumatic fracture; E55.9 Vitamin D deficiency, unspecified | CPT/HCPCS: 73000; 99213; 99214 ==